=== PATIENT | female | born 1970 | race Caucasian/White ===

== ENCOUNTER 2017-02-09 07:21 | Emergency (ER) | payer BC, OTHER ==
--- NOTE | 2017-02-09 07:47 | EDM.PDOC ---
ED UPPER BACK/NECK PAIN/INJURY - General Chief Complaint: Neck Problem Stated Complaint: CONTINUOUS NECK PAIN Time Seen by Provider: 02/09/17 07:47 Source of Information: Reports: Patient History Limitations: Reports: No limitations - History of Present Illness INITIAL COMMENTS - FREE TEXT/NARRATIVE: 46-year-old female presents the ED with complaints of diffuse pain throughout the right paraspinal aspect of her neck trapezius muscle towards the shoulder. Patient has a chronic pain syndrome and receives epidural steroid injections usually at C5-C6 every 3 months. Last injections were carried out 8 days ago. She states that the muscle and the soft tissues up been very painful and tenths and sometimes spastic since the injection. Been using high-dose Motrin and alternating heat and ice with minimal relief. She had 7 injections in total both paraspinally exceptionally and along the medial scapular area he trigger point injections. No fever or chills. Not sleeping because of the severity the pain particularly last evening. Feels like she's getting a migraine and she has a migraine propensity but no real severe headache has occurred. More of a constant deep aching throb. She does have full unrestricted range of motion of her cervical spine however. Symptom Onset Date: 02/01/17 Timing/Duration: Reports: Day(s):, Constant, Gradual onset Location: Reports: paraspinal, radiating pain Quality: Reports: Ache (Into the right trapezius and upper back on the right side.), Pressure, Throbbing Severity: moderate (2 severe. Sometimes can't sleep because of the severity of the pain. She has gone to massage therapist and chiropractor without much relief.) Place of Occurrence: home Improves with: Reports: Cold therapy, Medication Worsens with: Reports: Other Context: Reports: chronic pain/injury (Recent epidural steroid injection she believes at C5-C6 on the right side 8 days ago.). Denies: lifting (Pain is constant nothing seems to make it worse or better.), bending, fall, MVC, trauma Associated Symptoms: Reports: Malaise. 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 - Related Data Allergies/ADRs: Allergies Allergy/AdvReac Type Severity Reaction Status Date / Time No Known Allergies Allergy Verified 02/09/17 07:38 Home Meds: Home Meds Calcium Carbonate [Calcium] 500 mg PO DAILY 02/09/17 [History] Cholecalciferol (Vitamin D3) [Vitamin D3] 5,000 intnl unit PO DAILY 02/09/17 [ History] Dexamethasone 4 mg PO Q12H #10 tablet 02/09/17 [Rx] Diclofenac Sodium [Voltaren] 50 mg PO TIDMEALS #30 tab.ec 02/09/17 [Rx] Eletriptan HBr [Relpax] 40 mg PO ASDIRECTED PRN 02/09/17 [History] Fish Oil/Crescent-3 Fatty Acids [Fish Oil 1,000 MG] 0 mg PO DAILY 02/09/17 [History ] Gabapentin [Neurontin] 900 mg PO BEDTIME 02/09/17 [History] Ibuprofen [Motrin] 800 mg PO Q6H PRN 02/09/17 [History] Magnesium Oxide [Magnesium] 0 mg PO DAILY 02/09/17 [History] Rosuvastatin [Crestor] 5 mg PO BEDTIME 02/09/17 [History] Tapentadol HCl [Nucynta] 50 mg PO ASDIRECTED PRN 02/09/17 [History] oxyCODONE HCl/Acetaminophen [Percocet 5-325 mg Tablet] 1 - 2 each PO Q4H PRN # 20 tablet 02/09/17 [Rx] tiZANidine HCl [Tizanidine HCl] 2 mg PO DAILY PRN 02/09/17 [History] Past Medical History Musculoskeletal History: Reports: Arthritis, Neck pain, chronic Social & Family History - Living Situation & Occupation Living situation: Reports: 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 Denies: fever, chills, malaise , weakness, weight loss HEENT: Reports: No symptoms Respiratory: Reports: No Symptoms Cardiovascular: Reports: No symptoms Endocrine: Reports: no symptoms GI/Abdominal: Reports: No symptoms : Reports: no symptoms Musculoskeletal: Reports: neck pain (Right shoulder pain right neck pain), shoulder pain Skin: Reports: no symptoms, change in color Psychiatric: Reports: No symptoms ED EXAM, UPPER BACK/NECK PAIN - Physical Exam Exam: See Below Exam Limited By: No limitations General Appearance: alert, WD/WN, other (Does appear tired.) Eye Exam: bilateral eye: normal inspection Ears Exam: normal TMs Throat/Mouth Exam: Normal inspection, Normal lips, Normal teeth, Normal gums, Normal oropharynx Head Exam: atraumatic, normocephalic Neck Exam: non-tender, full range of motion, normal alignment, normal inspection , muscle spasm (Mild more in the superior belly of the trapezius and along the paraspinal musculature.), tenderness, tender lateral. 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 Patient is a chronic pain syndrome and receives epidural steroid injections into the neck about every 3 months. Last one was carried out 8 days ago and seemed to precipitate more muscle spasm inflammation and it hasn' t let up over the last 8 days. This disrupted the patient's sleep and ability to function it's in her schoolwork. She has full unopposed range of motion of her cervical spine. Pain is coming from the upper belly of the trapezius muscle primarily. She feels a lot of pressure at the base of her skull to like a migraine headache is going to occur but never turned into a full-blown headache. She's been using numerous different forms of treatment in terms of ultrasound muscle relaxants and high-dose Motrin. Plan I'm going to place her on low-dose dexamethasone 4 mg twice a day for 5 days Voltaren 50 mg 3 times a day for 10 days Percocet tabs x20 one or 2 every 4-6 hours needed for pain relief when not at work or school and primarily at bedtime so that she can get adequate sleep and rest. Hopefully inflammation will settle down over the next week. Departure - Departure Time of Disposition: 08:01 Disposition: Home, Self-Care 01 Condition: fair Clinical Impression: Muscle spasms of neck Prescriptions: Dexamethasone 4 mg PO Q12H #10 tablet Diclofenac Sodium [Voltaren] 50 mg PO TIDMEALS #30 tab.ec oxyCODONE HCl/Acetaminophen [Percocet 5-325 mg Tablet] 1 - 2 each PO Q4H PRN # 20 tablet PRN Reason: pain relief. Instructions: Cervical Sprain, [id number] Referrals: Joy Flaherty DO [Primary Care Provider] - Forms: ED Department Discharge Additional Instructions: Evaluation in the emergency room today in regards to diffuse soft tissue inflammation along the trapezius and paraspinal musculature on the right side of your neck. Chronic problems with migraines and neck pain usually relieved with epidural steroid injections but with no relief with recent injection. infected appears to be a flare up of underlying inflammation of the trapezius and paraspinal musculature post injection. Suggest continued use of anti- inflammatory Voltaren 50 mg 3 times daily for the next 10 days. Start this morning. Dexamethasone 4 mg twice daily breakfast and supper for the next 5 days to relieve inflammation primarily. Percocet tablets 5-325 mg strength one or 2 every 4-6 hours needed for pain relief. The pain is bad take one first to see out of that you. Usually pain medicine is utilized for not driving a motor vehicle or operating machinery . He takes the anti-inflammatories a good 36 hours to" kick ". Expect improvement over the next 36-72 hours. Could still utilize a muscle relaxant such as Flexeril or Zanaflex at bedtime as well.
[2017-02-09 08:51] VITALS: BP 129/106
== END 2017-02-09 08:20 | disposition home or self-care (01) ==
LOC: JD.ED 07:21
DX: M62.838 Other muscle spasm (principal); M19.90 Unspecified osteoarthritis, unspecified site; Z79.899 Other long term (current) drug therapy
CPT/HCPCS: 99283

== ENCOUNTER 2017-12-03 04:39 | Emergency (ER) | payer OTHER, BC ==
[2017-12-03 04:48] VITALS: BP 149/95
[2017-12-03] MEDS ORDERED: Orphenadrine 100 MG Tab.ER PO STA (05:16)
--- NOTE | 2017-12-03 05:26 | EDM.PDOC ---
ED HPI GENERAL MEDICAL PROBLEM - General Chief Complaint: Headache Stated Complaint: HEADACHE Time Seen by Provider: 12/03/17 04:49 Source of Information: Reports: Patient, Family () History Limitations: Reports: No Limitations - History of Present Illness INITIAL COMMENTS - FREE TEXT/NARRATIVE: The patient states that she has chronic pain at the attachment of the cervical paraspinous muscles to the base of her skull. She states that a MRI showed minimal disc bulging with no nerve impingement, therefore the exact etiology of her pain is unclear, nevertheless, the patient is under the care of the pain digital asset manager Irina Mcnulty NP, who prescribes for the patient the opioid analgesic Nucynta (tapentadol), diclofenac, Lidoderm patch, the muscle relaxant Zanaflex ( tizanidine), gabapentin, and the anti-migraine medicine Relpax (eletriptan). The patient also receives quarterly C5/C6 epidural injections per the Anesthesiologist Dr. Haider. The patient states that if she develops increased pain at the base of her skull , she takes Relpax, because if she does not, she develops a "migraine", by which she means a bad headache (the symptoms that the describes do not sound like actual migraines). The patient states that her last cervical epidural injection was on 11/26/2017 In the meantime, however, the patient reports that she had forehead pain without fever or purulent discharge about 6-8 weeks ago. She saw her PCP, Gwendolyn Restrepo, about 10 days ago. The patient states that no tests were done, but that she was diagnosed with a sinus infection and prescribed a 6-day course of prednisone and a 10-day course of Augmentin (possibly ciprofloxacin), that she finished yesterday. She states that while on the prednisone, her neck pain was reduced, but now that she is off the prednisone, it has increased, since this past 12/01/2017. She has also had nausea since then, for which she took Zofran. She states that she took her usual Relpax, but that it has not helped the neck pain. She has tried ice, heat, and tizanidine, without relief. No history of neck injury, however, the patient works in [employer]. When asked about workplace ergonomics, she reports that extensive changes were made to her work space, with significant improvement in her neck pain. Headache Pain Score (Numeric/FACES): 7 - Related Data Allergies Allergy/AdvReac Type Severity Reaction Status Date / Time No Known Allergies Allergy Verified 02/09/17 07:38 Home Meds: Home Meds Azelastine/Fluticasone [Dymista Nasal [place]] 23 gm NS BID 12/03/17 [History] Ciprofloxacin [IJD: Ciprofloxacin HCl] 500 mg PO BID 12/03/17 [History] Diclofenac Sodium [Voltaren] 75 mg PO BIDMEALS 12/03/17 [History] Eletriptan [Relpax] 40 mg PO ASDIRECTED PRN 12/03/17 [History] Fexofenadine/Pseudoephedrine [Allergy+Congestion Relf-D Tab] 1 each PO DAILY [History] Gabapentin [Neurontin] 900 mg PO BEDTIME 12/03/17 [History] Lidocaine 5% [Lidoderm 5%] 2 patch TOP DAILY PRN 12/03/17 [History] Ondansetron [Zofran ODT] 4 mg PO Q4H PRN 12/03/17 [History] Orphenadrine [Norflex] 1 tab PO Q12H PRN #10 tab.er 12/03/17 [Rx] Rosuvastatin [Crestor] 5 mg PO DAILY 12/03/17 [History] Tapentadol HCl [Nucynta ER] 50 mg PO BID 12/03/17 [History] Tapentadol [Nucynta] 50 mg PO TID PRN 12/03/17 [History] tiZANidine 2 mg PO DAILY 12/03/17 [History] Past Medical History HEENT History: Reports: Impaired Vision Other HEENT History: wears eyeglasses Cardiovascular History: Reports: High Cholesterol 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: Musculoskeletal History: Reports: Neck Pain, Chronic Endocrine/Metabolic History: Reports: Vitamin D Deficiency - Infectious Disease History Infectious Disease History: Reports: Chicken Pox - Past Surgical History HEENT Surgical History: Reports: Oral Surgery ([place] teeth extraction) Female Surgical History: Reports: Other (See Below) (Ovarian cystectomy) Social & Family History - Tobacco Use Smoking Status *Q: Never Smoker Second Hand Smoke Exposure: No - Caffeine Use Caffeine Use: Reports: Soda - Alcohol Use Alcohol Use History: Yes Alcohol Use Frequency: Rarely - Recreational Drug Use Recreational Drug Use: No - Living Situation & Occupation Living situation: Reports: , with Spouse 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 - Physical Exam Exam: See Below Exam Limited By: No Limitations General Appearance: Alert, WD/WN, No Apparent Distress Eye Exam: Bilateral Eye: Normal Inspection Ears: Normal External Exam, Hearing Grossly Normal Nose: Normal Inspection, No Blood Throat/Mouth: Normal Inspection, Normal Lips, Normal Voice, No Airway Compromise Head Exam: Atraumatic, Normocephalic Neck: Normal Inspection, Supple, Tender Lateral (Primarily at the insertion of the cervical neck muscles to the occiput of the skull. No palpable muscle spasm noted.). No: Tender Midline Course - Vital Signs Last Recorded V/S: Last Vital Signs Temp 36.0 C 12/03/17 04:45 Pulse 73 12/03/17 04:45 Resp 18 12/03/17 04:45 BP 149/95 H 12/03/17 04:45 Pulse Ox 99 12/03/17 04:45 - Orders/Labs/Meds Meds: Medications Discontinued Medications Generic Name Dose Route Start Last Admin Trade Name Freq PRN Reason Stop Dose Admin Orphenadrine Citrate 100 mg 12/03/17 05:16 12/03/17 05:24 Norflex PO 12/03/17 05:17 100 mg ONETIME STA Administration - Re-Assessments/Exams Free Text/Narrative Re-Assessment/Exam: 12/03/17 05:20 The patient has chronic pain at the base of her skull, ostensibly due to muscle spasm, and is under the care of a pain digital asset manager, who prescribes medications such as an opioid analgesic, anti-migraine medicine, a muscle relaxant, and gabapentin, as well as an Anesthesiologist who performs quarterly steroid neck injections. Despite this, the patient has had pain at the base of her skull not relieved with Relpax. On examination, I do not find that she has any palpable muscle spasm, although she indicates that she has tenderness to that area. I am recommending that she switch from Zanaflex (tizanidine) to Norflex (orphenadrine ), as it will likely work better and has a much better side effect profile. The patient will receive her first dose here in the ED, and I will e-prescribe a five-day course. If it works, she can get future prescriptions per her PCP or pain digital asset manager. Departure - Departure Time of Disposition: 05:24 Disposition: Home, Self-Care 01 Condition: Good Clinical Impression: Chronic neck pain - Discharge Information Prescriptions: Orphenadrine [Norflex] 1 tab PO Q12H PRN #10 tab.er PRN Reason: Muscle Spasm Instructions: Musculoskeletal Pain Referrals: Irina Mcnulty NP [Ordering Only Provider] - Elizabeth Restrepo NP [Ordering Only Provider] - Forms: ED Department Discharge Additional Instructions: You were seen in the emergency room for acute-on chronic pain at the base of your skull. You have been started on the muscle relaxant Norflex. A prescription for this has been sent to the [facility] on [address]. Take one tablet every 12 hours, as prescribed. If you take this medicine, DO NOT also take Zanaflex ( tizanidine). If this medicine works for you, talk to your pain digital asset manager, Irina Mcnulty NP, about an additional prescription. If any other problems, please do not hesitate to return to the ER.
== END 2017-12-03 05:36 | disposition home or self-care (01) ==
LOC: JD.ED 04:39
DX: G89.29 Other chronic pain (principal); M54.2 Cervicalgia; E78.00 Pure hypercholesterolemia, unspecified; Z79.899 Other long term (current) drug therapy
CPT/HCPCS: 99283; A9270